=== PATIENT | female | born 1980 | race Caucasian/White ===

== ENCOUNTER 2022-02-19 00:13 | Day surgery (SDC) | payer OTHER, SELFPAY ==
[2022-02-15 14:16] VITALS: BMI 27.3
--- NOTE | 2022-02-15 14:28 | PC.NURSE ---
Report to the Outpatient Waiting Room, entrance under the green pavilion located off [facility], at time 0630 on date 02/19/22. OR Time: 0830. - You and your visitor will be asked a series of questions to screen for COVID 19 for your protection. - Only one visitor is allowed at this time. - The patient visitor is requested to leave or wait in car when not with patient. - A mask is required within the hospital. Patients may have clear liquids (water, carbonated beverages, clear teas, apple juice) until 3 hours prior to surgery with a maximum of 20 ounces. - No food from midnight until time of surgery Take the following medications with a SIP of water the morning of surgery: N/A Medications to discontinue per physician: N/A Date to take last dose: N/A Please no make-up, nail finnish, hairspray, perfume, deodorant, or body powder the day of surgery. No jewelry (including any body piercings) or valuables the day of surgery, leave them at home. Please take a shower or bath the night before, or the morning of, surgery with an antibacterial soap. Wear comfortable, loose fitting clothing. - Jewelry must be removed prior to entering the operating room. Rings and piercings that are not removed may be cut off. - The hospital will not accept responsibility for valuables. - Please leave all valuables, including medications, at home the day of surgery. If you are going home after surgery, a licensed special education bus driver must drive you home. - NO public transportation without another adult. - We recommend that an adult stay with you for 24 hours following discharge. - We also recommend that you do not drive, make important decision, drink alcoholic beverages, or take any drugs that were not prescribed by your health care provider for at least 24 hours after your discharge time. Follow any additional instructions given to you from your surgeon. If you or anyone in your household have experienced Covid symptoms in the past week, please notify your surgeon or the nurse liaison at the phone number below for possible testing. Telephone instructions given to PT - DREW CARRILLO and asked if any additional questions and then verbalized understanding. Patient advised to call surgeon office or pre surgery nurse liaison [phone] if any additional questions.
[2022-02-19] VITALS (8 sets, daily range): BP systolic 105–162; BP diastolic 62–86; PULSE 79–115; RESP 16–22; TEMP 36.3–36.8; O2SAT 98–100; BMI 28.3
--- NOTE | 2022-02-19 06:44 | ECG_ITS ---
Measurements Intervals [place] Rate: 71 P: 46 DC: 132 QRS: 36 QRSD: 85 T: 14 QT: 381 QTc: 416 Interpretive Statements SINUS RHYTHM WITH SINUS ARRHYTHMIA NORMAL ECG Electronically Signed On 02-19-2022 18:22:01 CDT by Nicolas Reed D.O.
--- NOTE | 2022-02-19 06:48 | W.PM.PROC2 ---
Procedure Note - Detailed Date of Procedure 02/19/22 Pre-op Diagnosis skin laxity ,macromastia Post-op Diagnosis Same Procedure Performed 1. Bilateral reduction mammaplasty 2. Progressive tension abdominoplasty with suction lipectomy Surgeon Corby Aragon MD Anesthesia General Findings Inverted T, superior pedicle reduction mammaplasty Tissue removed: Right breast - 444.1 grams Left breast - 421.6 grams Lipoaspirate Right breast - 350 cc Left breast - 350 cc Abdominal tissue removed: 1307 grams Abdominal lipoaspirate 3250 cc Description of Procedure She is here today for the above provecedures. Previously and again today the risks, benefits, alternatives were discussed in extensive detail. I wanted her to be very realistic about the risks involved as well as expectations. We discussed aftercare and what to monitor for. She understands we can never guarantee final breast size and there will always be asymmetry. I was very upfront and honest about the risks of sensation change and even nipple loss (). I was very upfront about the risks of wound breakdown leading to loss of skin, open wounds, and need for additional procedures with permanent abdominal deformity. We discussed DVT/PE risks and management. She understands repeat reduction has increased risks. Made sure answered all of her and her husbands questions to her satisfaction today and consent was obtained. They were marked in the preoperative holding area with their verification. The patient was taken to the operating room placed supine on the operating table. Anesthesia was provided by anesthesiology. A Graham catheter was started. They were prepped and draped in a standard sterile 360 degree fashion. A surgical time-out was taken. Breast Stab incisions were made and I tumessed with a tumescent solution. I marked out the nipple-areolar complex at 42 mm. I then de-epithelialized the pedicle. The pedicle was well left well more than 2 cm in thickness. I then removed the inferior portion of the breast as well as the central keel to get shape based on preoperative planning. At this point copiously irrigated with saline solution and verified a strict hemostasis. I reapproximated the pillars using a 2-0 PDS. I tailor tacked the breast into place with aakash. She was placed in a sitting position. I verified the nipple-areolar complex position based on preoperative markings, intraoperative measurements, and observation which were in full agreement. This nipple-areolar complex was marked at 42 mm in size. Suction lipectomy was completed based on S.A.F.E technique using a 5mm basket canula. This was based on pre-operative planning, intra-operative observation, and rolling pinch test. I then placed supine and de-epithelialized this. Nipple-areolar complex was inset with 3-0 Monocryl. I closed IMF deep with 1 strattafix. I closed the vertical incision with 3-0 Monocryl in the IMF with 3-0 stratafix. Then everything was closed using a running subcuticular 4-0 Monocryl followed by tissue glue. Abdomen I placed the patient in a flexed position to verify the upper and lower markings would reach. I then placed supine. A thorough abdominal examination was completed. Stab incisions were made and tumescent solution infiltrated. Suction lipectomy was completed multiple planes and passes based on S.A.F.E. technique using a 5 mm basket cannula. Patient was placed into the lateral decubitus position during this procedure with care taken to protect during turns and positioning. This was completed based on preoperative planning, intraoperative observation, and rolling pinch test which was in full agreement. She was placed supine. A 10 blade was used to make the upper incision. I continued dissection down to the level of fascia. Elevated just what was necessary for repair of the diastasis. I then again flexed the bed to verify the upper skin flap would reac
[2022-02-19 07:04] LABS: Urine Cotinine NEGATIVE
--- NOTE | 2022-02-19 07:10 | P.PNAN_ITS ---
Anes - Initial Pre Proc Eval Procedure: Operation Date: 02/19/22 08:30 Proposed Procedures p Bilateral Breast Reduction - Corby Aragon MD s Abdominoplasty with Liposuction - Corby Aragon MD Date/Time: 02/19/22 07:10 Surgeon: Corby Aragon MD Pre Op Diagnosis: skin laxity ,macromastia Patient Data Age: 41 Gender: F Height: 1.57 m Weight: 68 kg Allergies Allergy/AdvReac Type Severity Reaction Status Date / Time No Known Allergies Allergy Unverified 02/16/22 08:23 Home Medications Medication Instructions Recorded Confirmed Type carisoprodol 350 mg tablet (Soma) 350 mg PO TID PRN muscle pain #21 02/16/22 02/16/22 Rx tabs diazepam 5 mg tablet (Valium) 5 mg PO TID PRN anxiety #7 tabs 02/16/22 02/16/22 Rx docusate sodium 100 mg capsule 100 mg PO DAILY #14 caps 02/16/22 Rx (Colace) ondansetron 4 mg disintegrating 4 mg PO Q8H #28 tabs 02/16/22 Rx tablet oxycodone-acetaminophen 5 mg-325 1 tablet PO Q6H PRN pain #30 tabs 02/16/22 02/16/22 Rx mg tablet (Percocet) Laboratory Tests 02/19/22 06:47 Cotinine Negative Patient hx anesthesia problems: none Family hx anesthesia problems: none Results Review: All pre-operative results and documents have been reviewed as part of the pre- operative evaluation. [facility] Surgical History Surgical History (Updated 02/19/22 @ 07:10 by Edson Laura MD) History of bilateral breast reduction surgery History of section Social History Social History Smoking status: Never smoker Alcohol intake: current Drinks per week: 3 Substance use: never Substance use type: does not use Living arrangements: with family Spiritual care concerns: No Anes - Eval Final PreProcedure Day of Procedure 02/19/22 07:10 Patient weight: overweight Heart: regular rate and rhythm Lungs: clear to auscultation Airway: Mallampati scale class II Neurological: alert and oriented Last oral intake: >/= 8 hours ASA classification: II Emergent: no Anesthetic plan: proceed Anesthesia type and monitoring: general ETT and standard monitoring Results Review: All pre-operative results and documents have been reviewed as part of the pre- operative evaluation. Informed Consent: The patient's anesthetic plan and its attendant risks and benefits were discussed with the patient/family/POA. Questions were solicited and answers provided to the satisfaction of the patient/family/POA.
[2022-02-19] MEDS: SCOPOLAMINE 1.5 MG PATCH TRANSDERM (07:37)
[2022-02-19] MEDS: LACTATED RINGERS 1,000 ML 30 ML IV CONT ×2 (07:54→14:30)
--- NOTE | 2022-02-19 07:59 | SUR.PREOP ---
500CC IVF BOLUS STARTED PER ORDER
--- NOTE | 2022-02-19 08:02 | SUR.PREOP ---
FEMALE STAFF IN ROOM WHILE DR DUFFY MARKED. SPOUSE AT SIDE
[2022-02-19 08:13] LABS: Hematocrit 40.9 % (37.0-47.0)
--- NOTE | 2022-02-19 08:26 | WPDHPUPDATE1 ---
History and Physical Update Update Date/Time: 02/19/22 08:26 History and Physical has been reviewed, including an updated exam of the patient. There are NO changes in the patient's condition. Risks, benefits, and alternatives have been discussed and questions answered. Patient agrees to proceed with procedure.
[2022-02-19] MEDS: ceFAZolin 2 GM/D5W 50 ML 2 GM/50 ML BAG IVPB (08:31)
[2022-02-19] MEDS: TRANEXAMIC ACID 1,000MG/ISO100 1,000 MG/100 ML BAG 200 MG IVPB (08:42)
[2022-02-19] MEDS: BUPIVACAINE HCL 0.25% PF 30 ML VIAL INFILTRATE (09:42)
[2022-02-19] MEDS: LIDO 1%/EPINEPHRINE 1:100,000 10 ML VIAL 30 ML INFILTRATE (09:43)
[2022-02-19] MEDS: LACTATED RINGERS IRRIG 1,000 ML, LIDOCAINE HCL 1% LOCAL INJ 50 ML, EPINEPHrine HCL INJ ... INFILTRATE (14:02)
[2022-02-19] MEDS: fentaNYL CITRATE INJ (*CRX) 100 MCG/2 ML VIAL 25 MCG IV PUSH ×4 (14:52→15:00)
--- NOTE | 2022-02-19 15:31 | PC.NURSE ---
This patient, Rita Jose, was received from PACU per bed on 02/19/22 at 1531. Patient oriented to unit policies and routines
[2022-02-19] MEDS: LACTATED RINGERS 1,000 ML 125 ML IV CONT (16:17)
[2022-02-19] MEDS: MORPHINE SULFATE (*CRX) 2 MG/ML INJ IV PUSH (16:18)
[2022-02-19] MEDS: diazePAM (*CRX) 5 MG TABLET PO (16:48)
[2022-02-19] MEDS: carisoprodoL (*CRX) 350 MG TABLET PO (18:26)
[2022-02-19] MEDS: DOCUSATE SODIUM 100 MG CAPSULE PO (21:00)
[2022-02-19] MEDS: ENOXAPARIN 40 MG/0.4 ML SYRINGE SUB-Q (21:00)
[2022-02-20] MEDS: carisoprodoL (*CRX) 350 MG TABLET PO ×3 (00:04→11:00)
[2022-02-20] MEDS: oxyCODONE/ACETAMINOPHEN (*CRX) 5-325 MG TABLET PO ×3 (00:06→09:30)
[2022-02-20 05:10] VITALS: BP 110/71; PULSE 99; RESP 16; TEMP 36.7
--- NOTE | 2022-02-20 07:06 | WPDPN ---
Progress Note: A&P Assessment and Plan (1) Skin laxity: Code(s): L57.4 - Cutis laxa senilis Status: Acute Assessment and Plan: Doing well after bilateral breast reduction (repeat procedure) and progressive tension abdominoplasty with suction lipectomy. Will discharge home. Today we had a lengthy discussion about the care. Activity limitations. What to monitor for. This was a lengthy open ended conversation making sure she was well informed. She knows what is a medical emergency / when to dial 911 / proceed to ER. Call with any other questions or concerns. She voiced a clear understanding. We will see her back. (2) Macromastia: Code(s): N62 - Hypertrophy of breast Status: Acute (3) History of bilateral breast reduction surgery: Code(s): Z98.890 - Other specified postprocedural states Status: Acute Subjective Date/time seen: 02/20/22 07:06 Interval history: Overnight doing well. No f/c. No n/v. No SOB / CP. Out of bed to chair. Tolerated PO. Review of Systems Review of Systems: All systems reviewed & are unremarkable except as noted in HPI and below Exam Narrative: A&O NOD Respiratory unlabored Bilateral breast soft. No signs of infection. No hematoma. No seroma. Good color / capillary refill throughout Abdomen / flanks healing well. No signs of infection. No hematoma. No seroma. Good color / capillary refill throughout No calf tenderness. Negative Homann's. Objective Data Vital Signs Vital Signs: Vital Signs - 24 hr 02/19/22 07:29 02/19/22 14:30 02/19/22 14:45 Temperature 36.5 C 36.3 C L Pulse Rate 79 104 H 115 H Respiratory Rate 16 18 22 H Blood Pressure 119/68 105/75 121/73 Pulse Oximetry 98 100 100 Oxygen Delivery Room Air Simple Face Mask Simple Face Mask Oxygen Flow Rate 10 10 02/19/22 15:00 02/19/22 15:05 02/19/22 15:15 Temperature Pulse Rate 106 H 108 H Respiratory Rate 20 20 Blood Pressure 162/72 H 140/86 Pulse Oximetry 100 100 100 Oxygen Delivery Simple Face Mask Room Air Room Air Oxygen Flow Rate 10 02/19/22 15:40 02/19/22 15:40 02/19/22 18:35 Temperature 36.8 C 36.6 C Pulse Rate 92 97 Respiratory Rate 18 16 Blood Pressure 127/62 114/77 Pulse Oximetry 100 Oxygen Delivery Room Air Oxygen Flow Rate 02/20/22 05:10 Temperature 36.7 C Pulse Rate 99 Respiratory Rate 16 Blood Pressure 110/71 Pulse Oximetry Oxygen Delivery Oxygen Flow Rate Intake/Output Intake/Output: Intake & Output 02/17/22 02/18/22 02/19/22 02/20/22 23:59 23:59 23:59 23:59 Intake Total 550 1000 Output Total 550 500 Balance 0 500 Meds/Results Medications: Active Medications Generic Name Dose Route Start Last Admin Trade Name Freq PRN Reason Stop Dose Admin Carisoprodol 350 mg 02/19/22 18:00 02/20/22 05:18 Carisoprodol (*Crx) 350 Mg Tablet PO 350 mg Q6HR MICHELET Administration Diazepam 5 mg 02/19/22 14:17 02/19/22 16:48 Diazepam (*Crx) 5 Mg Tablet PO 5 mg TID PRN Administration Anxiety Docusate Sodium 100 mg 02/19/22 21:00 02/19/22 21:00 Docusate Sodium 100 Mg Capsule PO 100 mg Q12HR MICHELET Administration Enoxaparin Sodium 40 mg 02/19/22 20:00 02/19/22 21:00 Enoxaparin 40 Mg/0.4 Ml Syringe SUB-Q 40 mg DAILY MICHELET Administration Lactated Ringer's 1,000 mls @ 125 mls/hr 02/19/22 14:20 02/20/22 06:32 Lr - Lactated Ringers Iv IV CONT Not Given .Q8H MICHELET Morphine Sulfate 2 mg 02/19/22 14:17 02/19/22 16:18 Morphine Sulfate (*Crx) 2 Mg/Ml Inj IV PUSH 2 mg Q2H PRN Administration Pain Ondansetron HCl 4 mg 02/19/22 14:17 Ondansetron Inj 4 Mg/2 Ml Vial IV PUSH Q6H PRN Nausea Oxycodone/Acetaminophen 1 - 2 tablet 02/19/22 14:17 02/20/22 05:18 Oxycodone/Acetaminophen (*Crx) 5-325 Mg Tablet PO 1 tablet Q6H PRN Administration Pain Labs Labs: Laboratory Results - last 24 hr 02/19/22 08:
--- NOTE | 2022-02-20 07:13 | PM.DS ---
DS: Admitting Diagnosis Discharge Date 02/20/2022 Admitting Diagnosis Macromastia Skin laxity DS: Discharge Diagnosis Discharge Diagnosis (1) Macromastia: Code(s): N62 - Hypertrophy of breast Status: Acute (2) Skin laxity: Code(s): L57.4 - Cutis laxa senilis Status: Acute (3) History of bilateral breast reduction surgery: Code(s): Z98.890 - Other specified postprocedural states Status: Acute DS: Summary Hospital Course Hospital Course: She underwent bilateral reduction mammaplasty (repeat) with progressive tension abdominoplasty and suction lipectomy. Postoperatively has done very well. Tolerating PO. Out of bed to chair. Pain controlled. Will discharge home later today. Time spent discussing smoking cessation with patient: more than 10 minutes Time Spent with Patient Time attestation: Total time spent providing and/or coordinating discharge services: Exam Narrative: A&O NOD Respiratory unlabored Bilateral breast soft. No signs of infection. No hematoma. No seroma. Good color / capillary refill throughout Abdomen / flanks healing well. No signs of infection. No hematoma. No seroma. Good color / capillary refill throughout No calf tenderness. Negative Homann's. DS: Data Data Completed and Pending Pending studies at discharge: Pending at discharge 02/19/22 09:34 Surgical [PTH] Routine 02/19/22 09:35 Surgical [PTH] Routine Labs on day of discharge: Labs from last 24 hours 02/19/22 08:01 Hgb 13.0 Hct 40.9 Discharge Plan Discharge Patient Disposition: Home, Self-Care Discharge Instructions: POST OPERATIVE DISCHARGE INSTRUCTIONS CORBY ARAGON [facility] [address] [place] [address] [address] for 24 hours after anesthesia and while you are taking pain medication. Take all prescribed medication as directed Diet as tolerated. No lifting or activity that raises blood pressure for 48 hours. Regular walking / ambulation. May shower 24 hours after surgery. Once you shower do not take pain medication before showering as the combination of medication and heat may cause you to feel dizzy or pass out. No pools or tubs for 2 weeks. Slowly stand up straight as tolerated. No straining or lifting more than 20 pounds. Call with any questions or concerns. Dressing Care: Continue abdominal binder / foam and surgical bra 23 hours per day. If you have any questions or concerns, please call the office . If it is after hours you will be directed to the storage consultant exchange. Shortness of breath, chest pain, or other medical emergency dial 911 / proceed to the Emergency Room. Stand Alone Forms: General Discharge Instructions Follow-up/Referrals: Corby Aragon MD [Physician] - 1 Week Discharge Medications: Continued ondansetron 4 mg tablet,disintegrating 4 mg PO Q8H Qty: 28 0RF docusate sodium [Colace] 100 mg capsule 100 mg PO DAILY Qty: 14 0RF carisoprodol [Soma] 350 mg tablet 350 mg PO TID PRN (Reason: muscle pain) Qty: 21 0RF oxycodone-acetaminophen [Percocet] 5-325 mg tablet 1 tablet PO Q6H PRN (Reason: pain) Qty: 30 0RF diazepam [Valium] 5 mg tablet 5 mg PO TID PRN (Reason: anxiety) Qty: 7 0RF
[2022-02-20 08:00] VITALS: BP 104/63; PULSE 94; RESP 14; TEMP 37.2; O2SAT 100
[2022-02-20] MEDS: DOCUSATE SODIUM 100 MG CAPSULE PO (09:30)
== END 2022-02-20 11:06 | disposition home or self-care (01) ==
LOC: ANHSURGERY 06:54 → ANHOB2 15:35
PROVIDERS: Anesthesiology; Visit Provider Surgery Plastic and Reconstructive Surgery
PROC: 0HBV0ZZ Excision of Bilateral Breast, Open Approach (ICD-10-PCS; CPT 19318; principal; 2022-02-19 08:30)
PROC: (CPT 19318; 2022-02-19 08:30)
DX: Z41.1 Encounter for cosmetic surgery (principal); L57.4 Cutis laxa senilis; N62 Hypertrophy of breast
CPT/HCPCS: 19318; 15877; 15830; 15847; 80307; 85014; 85018; 88305; 93005; 99199; A9270; J0171; J0690; J1100; J1200; J1650; J2250; J2270; J2405; J2704; J3010; J7120